=== PATIENT | male | born 1930 | race Two or more races ===

== ENCOUNTER 2018-06-25 14:33 | Emergency (ER) | payer OTHER ==
[~2018-06-25] VITALS: Ht 170.2 cm; Wt 74.8 kg
[2018-06-25] MEDS ORDERED: ATACAND4 MG (15:05)
[2018-06-25] MEDS ORDERED: REMERON15 MG (15:05)
== END 2018-06-25 20:15 | disposition home or self-care (01) ==
LOC: ER 14:33
DX: M24.422 Recurrent dislocation, left elbow (principal)